=== PATIENT | female | born 1955 | race Caucasian/White ===

== ENCOUNTER → 2017-11-05 | Outpatient (CLI) | payer BC ==
[~2017-11-05] MED LIST: ASPI81TA28 PO; DOXYCYCLINE PO; MELO15TA4 PO; MULTTAB58 PO
== END | disposition home or self-care (01) ==
LOC: C.PATHSPEC 17:34
PROVIDERS: ATTEND Dermatology
DX: C44.519 Basal cell carcinoma of skin of other part of trunk (principal)

== ENCOUNTER 2017-11-12 11:35 | Emergency (ER) | payer BC ==
[~2017-11-12] VITALS: Ht 160 cm; Wt 80.0 kg
[~2017-11-12 11:35] MED LIST changes: -ASPI81TA28 PO; -DOXYCYCLINE PO
[2017-11-12 11:36] VITALS: TEMP 36.7; Ht 160 cm; Wt 80.0 kg
[2017-11-12 12:28] VITALS: O2SAT 97
[2017-11-12 12:46] LABS: BASO % 0.6 %; BASO ABS # 0.04 K/uL (0-0.2); EOS % 1.1 %; EOS ABS # 0.07 K/uL (0-0.5); HEMATOCRIT 41.8 % (37-47); HEMOGLOBIN 14.2 g/dL (12.0-16.0); IG# 0.02 K/uL (0.00-0.02); LYMPH % 30.6 %; LYMPH ABS # 1.98 K/uL (1.2-3.4); MEAN CELL VOLUME 86.7 fL (80-100); MEAN CORPUSCULAR HEMOGLOBIN 29.5 pg (25-34); MEAN PLATELET VOLUME 10.3 fL (7.4-10.4); MONO % 6.2 %; NEUT % 61.2 %; NEUT ABS # 3.97 K/uL (1.4-6.5); PLATELET COUNT 283 K/uL (130-400); RED CELL DISTRIBUTION WIDTH CV 12.7 % (11.5-14.5); RED CELL DISTRIBUTION WIDTH SD 40.5 fL (36.4-46.3); WHITE BLOOD COUNT 6.48 K/uL (4.8-10.8)
[2017-11-12 13:07] LABS: ALBUMIN 4.3 gm/dl (3.4-5.0); ALT/SGPT 35 U/L (12-78); AST/SGOT 23 U/L (15-37); BLOOD UREA NITROGEN 11 mg/dl (7-18); CALCIUM 9.2 mg/dl (8.5-10.1); CARBON DIOXIDE 28 mmol/L (21-32); CREATININE 0.87 mg/dl (0.60-1.20); GLUCOSE 99 mg/dl (70-99); POTASSIUM 4.4 mmol/L (3.5-5.1); SODIUM 137 mmol/L (136-145)
--- NOTE | 2017-11-12 13:14 | DIAGNOSTIC IMAGING REPORT ---
CHEST ONE VIEW PORTABLE CLINICAL HISTORY: back and neck pain, HTN dyspnea COMPARISON STUDY: No previous studies for comparison. FINDINGS: The bones soft tissues and hemidiaphragms are normal. The cardiomediastinal silhouette is normal. The lungs are clear. The pulmonary vasculature is normal. IMPRESSION: Negative chest. The above report was generated using voice recognition software. It may contain grammatical, syntax or spelling errors. Electronically signed by: Yann Crooks M.D. 11/12/2017 1:12 PM Dictated Date/Time: 11/12/2017 1:09 PM
[2017-11-12 13:18] LABS: ALKALINE PHOSPHATASE 102 U/L (45-117); CKMB 2.4 ng/ml (0.5-3.6); TOTAL PROTEIN 8.1 gm/dl (6.4-8.2)
[2017-11-12] MEDS ORDERED: OPTIRAY 320 IV PRN (13:30)
--- NOTE | 2017-11-12 13:58 | EMERGENCY ROOM VISIT NOTE ---
History Report prepared by Bambi: Vicente Tapia Under the Supervision of: Dr. Adria Prado M.D. First contact with patient: 11:59 Chief Complaint: BACK PAIN Stated Complaint: BACK PAIN BETWEEN SHOULDERS History of Present Illness The patient is a 62 year old female who presents to the Emergency Room with complaints of constant pain between her shoulder blades. The patient describes her pain as a "dull ache." The pain is worsened with movement of the neck. She states that she was also experiencing intermittent "jabbing" pain in her left chest as well today. She recently had some basal cells removed from her upper back, but the pain is in between the surgical sites. The patient has lumbar back pain at baseline, but this upper back pain is unusual for her. She is currently on Doxycycline that she was prescribed by her silk brusher. She thinks this Doxycycline has been causing some headaches recently. She denies any associated LOC, fevers, chills, diaphoresis, visual changes, neck pain, breathing difficulties, nausea, vomiting, abdominal pain, melena, hematochezia, urinary symptoms, numbness, weakness, lymphadenopathy, rash, or other complaints. Source of History: patient Position: back (upper) Quality: ache (Dull) Timing: constant Modifying Factors (Worsening): other (ROM of the neck) Associated Symptoms: + headache, + chest pain Review of Systems See HPI for pertinent positives and negatives. A total of ten systems were reviewed and were otherwise negative. Past Medical & Surgical No significant past medical/surgical history. Family History Cancer Hypertension Social History Smoking Status: Never Smoker Marital Status: Housing Status: lives with significant other Current/Historical Medications Scheduled Aspirin (Aspirin Ec), 2 TABS PO QAM [Doxycycline], 50 MG PO BID Allergies Coded Allergies: No Known Allergies (Verified , 11/12/17) Physical Exam Vital Signs Date Time Temp Pulse Resp B/P (MAP) Pulse Ox O2 Delivery O2 Flow Rate FiO2 11/12/17 16:23 85 18 132/79 98 11/12/17 15:19 83 20 170/114 97 Room Air 11/12/17 13:30 77 16 136/82 96 Room Air 11/12/17 12:28 97 Room Air 11/12/17 11:45 86 11/12/17 11:36 36.7 91 18 179/105 97 Room Air Physical Exam GENERAL: Awake, alert, well-appearing, in no distress HENT: Normocephalic, atraumatic. Oropharynx unremarkable. EYES: Normal conjunctiva. Sclera non-icteric. NECK: Supple. No nuchal rigidity. FROM. No JVD. There is minimal left trapezious tenderness to palpation. RESPIRATORY: Clear to auscultation. CARDIAC: Regular rate, normal rhythm. Extremities warm and well perfused. Pulses equal. ABDOMEN: Soft, non-distended. No tenderness to palpation. No rebound or guarding. No masses. RECTAL: Deferred. MUSCULOSKELETAL: Chest examination reveals no tenderness. There are two skin incisions in the upper back without infection. There is mild tape irritation around the incisions. The back is symmetrical on inspection without obvious abnormality. There is no CVA tenderness to palpation. No joint edema. There is full ROM of the shoulder without pain. LOWER EXTREMITIES: Calves are equal size bilaterally and non-tender. No edema. No discoloration. NEURO: Normal sensorium. No sensory or motor deficits noted. SKIN: No rash or jaundice noted. Medical Decision & Procedures ER Provider Diagnostic Interpretation: Radiology results as stated below per my review and radiologist interpretation: CHEST ONE VIEW PORTABLE CLINICAL HISTORY: back and neck pain, HTN dyspnea COMPARISON STUDY: No previous studies for comparison. FINDINGS: The bones soft tissues and hemidiaphragms are normal. The cardiomediastinal silhouette is normal. The lungs are clear. The pulmonary vasculature is normal. IMPRESSION: Negative chest. The above report was generated using voice recognition software. It may contain grammatical, syntax or spelling errors. Electronically signed by: Yann Crooks M.D. 11/12/2017 1:12 PM Dictated Date/Time: 11/12/2017 1:09 PM CHEST COMBO ANGIO DISSECTION CLINICAL HISTORY: Left-sided chest pain and hypertension. Family history of aneurysm. Evaluate for dissection. COMPARISON STUDY: Chest radiograph November 12, 2017. TECHNIQUE: Unenhanced and arterial phase imaging of the chest was performed. Injection of 94 cc of Optiray 320 IV was uneventful. Sagittal and coronal reconstructions were viewed as well as maximal intensity projections on an independent 3-D workstation. FINDINGS: The caliber of the thoracic aorta is normal. There is no evidence for thoracic aortic dissection or intramural hematoma. No pulmonary embolus is identified. The size of the heart is normal. There is no pericardial effusion. No enlarged axillary, mediastinal or hilar lymph nodes are present. Central airways are patent. There is no consolidation to suggest pneumonia. Dependent airspace opacities reflect atelectasis. There are no suspicious pulmonary nodules. No pneumothorax or pleural effusion is noted. There is a 2 mm calcified granuloma within the right lower lobe. Bony thorax and upper abdomen are unremarkable. IMPRESSION: 1. No thoracic aortic dissection. 2. No acute intrathoracic findings. Laboratory Results 11/12/17 12:24 Red Blood Count 4.82, Mean Corpuscular Volume 86.7, Mean Corpuscular Hemoglobin 29.5, Mean Corpuscular Hemoglobin Concent 34.0, Mean Platelet Volume 10.3, Neutrophils (%) (Auto) 61.2, Lymphocytes (%) (Auto) 30.6, Monocytes (%) (Auto) 6.2, Eosinophils (%) (Auto) 1.1, Basophils (%) (Auto) 0.6, Neutrophils # (Auto) 3.97, Lymphocytes # (Auto) 1.98, Monocytes # (Auto) 0.40, Eosinophils # (Auto) 0.07, Basophils # (Auto) 0.04 11/12/17 12:24 Test 11/12/17 12:24 11/12/17 12:53 11/12/17 14:13 White Blood Count 6.48 K/uL (4.8-10.8) Red Blood Count 4.82 M/uL (4.2-5.4) Hemoglobin 14.2 g/dL (12.0-16.0) Hematocrit 41.8 % (37-47) Mean Corpuscular Volume 86.7 fL (80-100) Mean Corpuscular Hemoglobin 29.5 pg (25-34) Mean Corpuscular Hemoglobin Concent 34.0 g/dl (32-36) Platelet Count 283 K/uL (130-400) Mean Platelet Volume 10.3 fL (7.4-10.4) Neutrophils (%) (Auto) 61.2 % Lymphocytes (%) (Auto) 30.6 % Monocytes (%) (Auto) 6.2 % Eosinophils (%) (Auto) 1.1 % Basophils (%) (Auto) 0.6 % Neutrophils # (Auto) 3.97 K/uL (1.4-6.5) Lymphocytes # (Auto) 1.98 K/uL (1.2-3.4) Monocytes # (Auto) 0.40 K/uL (0.11-0.59) Eosinophils # (Auto) 0.07 K/uL (0-0.5) Basophils # (Auto) 0.04 K/uL (0-0.2) RDW Standard Deviation 40.5 fL (36.4-46.3) RDW Coefficient of Variation 12.7 % (11.5-14.5) Immature Granulocyte % (Auto) 0.3 % Immature Granulocyte # (Auto) 0.02 K/uL (0.00-0.02) Prothrombin Time 10.1 SECONDS (9.0-12.0) Prothromb Time International Ratio 1.0 (0.9-1.1) Activated Partial Thromboplast Time 28.0 SECONDS (21.0-31.0) Partial Thromboplastin Ratio 1.1 Anion Gap 5.0 mmol/L (3-11) Est Creatinine Clear Calc Drug Dose 68.9 ml/min Estimated GFR () 83.9 Estimated GFR (Non- 72.4 BUN/Creatinine Ratio 12.7 (10-20) Calcium Level 9.2 mg/dl (8.5-10.1) Magnesium Level 2.0 mg/dl (1.8-2.4) Total Bilirubin 0.6 mg/dl (0.2-1) Direct Bilirubin < 0.1 mg/dl (0-0.2) Aspartate Amino Transf (AST/SGOT) 23 U/L (15-37) Alanine Aminotransferase (ALT/SGPT) 35 U/L (12-78) Alkaline Phosphatase 102 U/L (45-117) Total Creatine Kinase 164 U/L (26-192) Creatine Kinase MB 2.4 ng/ml (0.5-3.6) Creatine Kinase MB Ratio 1.5 (0-3.0) Troponin I < 0.015 ng/ml (0-0.045) Total Protein 8.1 gm/dl (6.4-8.2) Albumin 4.3 gm/dl (3.4-5.0) Thyroid Stimulating Hormone (TSH) 2.110 uIu/ml (0.300-4.500) Urine Color YELLOW Urine Appearance CLEAR (CLEAR) Urine pH 5.0 (4.5-7.5) Urine Specific [place] 1.013 (1.000-1.030) Urine Protein NEG (NEG) Urine Glucose (UA) NEG (NEG) Urine Ketones NEG (NEG) Urine Occult Blood NEG (NEG) Urine Nitrite NEG (NEG) Urine Bilirubin NEG (NEG) Urine Urobilinogen NEG (NEG) Urine Leukocyte Esterase NEG (NEG) Bedside Troponin I < 0.030 ng/ml (0-0.045) Laboratory results reviewed by me ECG Indication: chest pain, back/shoulder pain Rate (beats per minute): 74 Rhythm: normal sinus Findings: no acute ischemic change, no ectopy Change: Patient's electrocardiogram was interpreted by me. ED Course 1211: The patient was evaluated in room C1B. A complete history and physical exam was performed. 1516: I reevaluated the patient. Discussed results and discharge instructions: She verbalized understanding and agreement. The patient is ready for discharge. Medical Decision Prior records/ancillary studies reviewed. Triage Nursing notes reviewed and agree them. Additional history obtained from the family. The patient's history was concerning for back pain. Differential diagnosis: Etiologies such as muscular, fracture, aortic disease, metastatic disease, cord compression, discitis, infection, gastrointestinal, as well as others were entertained. Physical findings: As above. Mild left trapezius and paraspinal muscle tenderness. ER treatment provided: Carotid analgesia initially and on reassessment On reassessment the patient felt better. Diagnostics interpreted by me: ECG: Normal The labs revealed and unremarkable CBC, chemistry panels and cardiac markers. Imaging studies: X-ray and CT scan as above. The patient is doing well. Her pain seems to be most skull as it is reproducible with movement. There is no evidence of dissection. She had troponin that was negative 2 and a nonischemic ECG. Remainder of her blood work was unremarkable. I discussed conservative management. She declined analgesia. She will use heating pad, ibuprofen and Tylenol. She did note feeling headaches since starting her doxycycline. She denies any dysphagia to suggest possible esophagitis. I did advise her to stop the doxycycline temporarily and consult with her primary. She worsens in any way she will be back.I gave my usual and customary discussion regarding this issue. By the evaluation outlined above other emergent etiologies such as those listed in the differential, as well as others, were deemed relatively unlikely. The patient was educated about the findings as listed above. All questions were answered and the patient was pleased with the treatment. Return instructions were outlined and the patient was discharged in stable condition. The patient was referred to her pcp for follow-up for a recheck of the current condition. Blood Pressure Screening Patient's blood pressure: Elevated blood pressure Blood pressure disposition: Referred to PCP Impression Primary Impression: Upper back pain on left side Scribe Attestation The scribe's documentation has been prepared under my direction and personally reviewed by me in its entirety. I confirm that the note above accurately reflects all work, treatment, procedures, and medical decision making performed by me. Departure Information Dispostion Home / Self-Care Referrals Elsie Smith D.O. (PCP) Forms HOME CARE DOCUMENTATION FORM, IMPORTANT VISIT INFORMATION Patient Instructions [facility] Additional Instructions BACK PAIN INSTRUCTIONS: Ibuprofen(Motrin, Advil) may be used for fever or pain. Use 600mg every six hours as needed. Take with food. Avoid using more than 2400mg in a 24 hour period. Do not use 2400mg per day for more than three consecutive days without physician direction. Prolonged inappropriate use can lead to stomach upset or ulcers. (AND/OR) Acetaminophen(Tylenol) may be used for fever or pain. Use 1000mg every six hours as needed. Avoid using more than 4000mg in a 24 hour period. Rest and avoid heavy lifting until your symptoms resolve and then gradually return to full activity. A good rule of thumb is if it hurts your back to perform a certain activity, then it should be avoided until you are healthy again. A heating pad, warm compresses, or a hot shower may help with tight muscles and can be done several times a day as needed. Hold the doxycycline until follow-up. Return to the ER immediately for any passing out, rash, chest pain, difficulty breathing, numbness, tingling, severe pain, loss of control of your bowels or bladder, inability to walk, or as needed. Follow up with your primary care physician for a recheck of your current condition.
[2017-11-12] MEDS ORDERED: DOXYCYCLINE PO (14:04)
[2017-11-12] MEDS ORDERED: ASPI81TA28 PO (14:04)
--- NOTE | 2017-11-12 14:34 | DIAGNOSTIC IMAGING REPORT ---
CHEST COMBO ANGIO DISSECTION CLINICAL HISTORY: Left-sided chest pain and hypertension. Family history of aneurysm. Evaluate for dissection. COMPARISON STUDY: Chest radiograph November 12, 2017. TECHNIQUE: Unenhanced and arterial phase imaging of the chest was performed. Injection of 94 cc of Optiray 320 IV was uneventful. Sagittal and coronal reconstructions were viewed as well as maximal intensity projections on an independent 3-D workstation. FINDINGS: The caliber of the thoracic aorta is normal. There is no evidence for thoracic aortic dissection or intramural hematoma. No pulmonary embolus is identified. The size of the heart is normal. There is no pericardial effusion. No enlarged axillary, mediastinal or hilar lymph nodes are present. Central airways are patent. There is no consolidation to suggest pneumonia. Dependent airspace opacities reflect atelectasis. There are no suspicious pulmonary nodules. No pneumothorax or pleural effusion is noted. There is a 2 mm calcified granuloma within the right lower lobe. Bony thorax and upper abdomen are unremarkable. IMPRESSION: 1. No thoracic aortic dissection. 2. No acute intrathoracic findings. Electronically signed by: Darien Soriano M.D. 11/12/2017 2:32 PM Dictated Date/Time: 11/12/2017 2:23 PM
[2017-11-12 16:23] VITALS: BP 132/79; PULSE 85; O2SAT 98
== END 2017-11-12 16:25 | disposition home or self-care (01) ==
LOC: C.EDB 11:37 → C.EDC 16:25
DX: M54.9 Dorsalgia, unspecified (principal); Z79.82 Long term (current) use of aspirin

== ENCOUNTER → 2018-01-05 | Outpatient (CLI) | payer BC ==
[~2018-01-05] MED LIST changes: +ASPI81TA28 PO; +DOXYCYCLINE PO; -MELO15TA4 PO; -MULTTAB58 PO
== END | disposition home or self-care (01) ==
LOC: C.PATHSPEC 18:09
PROVIDERS: ATTEND Dermatology
DX: C44.519 Basal cell carcinoma of skin of other part of trunk (principal)